=== PATIENT | female | born 1975 | race Caucasian/White ===

== ENCOUNTER 2018-07-12 07:24 | Emergency (ER) | payer OTHER ==
--- NOTE | 2018-07-12 07:46 | EDPHY ---
H & P Stated Complaint: LLQ abd pain started friday, dairrhea yesterday Time Seen by Provider: 07/12/18 07:45 HPI/ROS: 42 yo F presents c/o lower abdominal pain since Friday, 2 days ago, more prominent on the left lower abdomen. Some diarrhea, non bloody and chills today. She hasnt been sleeping well secondary to discomfort. No vaginal discharge, periods regular and no prior abdominal surgery. Review of systems General no fever positive chills no weakness HEENT no eye pain no eye discharge. No eye redness, no sore throat Respiratory no cough, no shortness of breath Cardiac no chest pain, no peripheral edema GI positive abdominal pain, positive diarrhea, no constipation, no nausea, no vomiting no flank pain, no hematuria, no dysuria Musculoskeletal no myalgias, no joint pain Heme no easy bruising, no easy bleeding Endo no polyuria, no polydipsia Skin no rashes, no pruritus Neuro no syncope, no dizziness, no headaches Psych is no suicidal ideation, no homicidal ideation Source: Patient Exam Limitations: No limitations - Personal History LMP (Females 10-55): 8-14 Days Ago - Medical/Surgical History Hx Asthma: No Hx Chronic Respiratory Disease: No Hx Diabetes: No Hx Cardiac Disease: No Hx Renal Disease: No Hx Cirrhosis: No Hx Alcoholism: No Hx HIV/AIDS: No Hx Splenectomy or Spleen Trauma: No Other PMH: denies - Family History Significant Family History: No pertinent family hx - Social History Smoking Status: Never smoked Alcohol Use: Rarely Drug Use: None - Physical Exam Exam: 42 yo F alert and oriented in moderate distress secondary to lower abd discomfort HEENT atraumatic normocephalic, extraocular muscles intact, anicteric Oropharynx negative for erythema negative exudate, tolerating her own secretions Neck supple no meningismus Lungs clear to auscultation bilaterally Heart regular rate and rhythm without murmur rub or gallop Abdomen nondistended normoactive bowel sounds ttp llq, no guarding , no rebound Back no CVA tenderness, no step-offs, no spinal tenderness Extremities no cyanosis clubbing or edema Neuro alert and oriented, no focal deficits Constitutional: Initial Vital Signs Temperature (C) 36.7 C 07/12/18 07:29 Heart Rate 79 07/12/18 07:29 Respiratory Rate 18 07/12/18 07:29 Blood Pressure 131/77 H 07/12/18 07:29 O2 Sat (%) 97 07/12/18 07:29 O2 Delivery Mode Room Air Allergies/Adverse Reactions: No Known Allergies Allergy (Unverified 07/12/18 07:29) Home Medications: Medication Instructions Recorded Dicyclomine [Bentyl 20 MG (*)] 20 mg PO TID PRN #21 tab 07/12/18 Hydrocodone/Acetaminophen [Vicodin 1 - 2 each PO DAILY PRN 3 Days #6 07/12/18 5-300 mg Tablet] tablet Medical Decision Making - Diagnostics Imaging Results: Imaging Impressions Abdomen CT 07/12/18 08:02 Impression: 1. Normal bowel pattern. No diverticulitis/colitis or bowel obstruction. 2. Trace free fluid in the cul-de-sac. No abscess. 3. Benign gastric diverticula in an atypical location along the anterior wall of the stomach. No regional inflammation or perforation. Findings discussed with emergency department physician, Moni Robert MD on July 12, 2018 at 8:44 a.m. ED Course/Re-evaluation: Patient seen and evaluated for left lower quadrant abdominal pain, lower abdominal pain of 3 days duration. IV established, labs drawn pt given one liter normal slaine for dehydration CBC with mildly elevated white blood cell count 10 Urine negative cmp wnl Urinalysis negative for blood negative for infection, negative for ct abd done to rule out diverticulitis or appendicitis ct abd neg - no diverticultis, no adnexal masses, no hydroneprhosis Imp diarrhea, lower abdominal pain with negative ct scan, labs wnl plan home, rest, bentyl prn crampy pain f/u pcp return if worsening pain, fever. Differential Diagnosis: Differential diagnosis considered but not limited to: Diverticulitis, enteritis, colitis, appendicitis, gastroenteritis, infectious diarrhea, irritable bowel syndrome, tubo-ovarian abscess, kidney stone - Data Points Laboratory Results: 07/12/18 07/12/18 07/12/18 08:01 08:00 07:47 POC Sodium 137 mEq/L mEq/L (135-145) POC Potassium 3.8 mEq/L mEq/L (3.3-5.0) POC Chloride 103.0 mEq/L mEq/L (97-110) POC Total CO2 25 mEq/L mEq/L (22-31) POC BUN 8 mg/dL mg/dL (7-23) POC Creatinine 1.0 mg/dL mg/dL (0.6-1.0) POC Glucose 114 mg/dL H mg/dL (70-100) POC Lactic Acid Faisal 1.1 mmol/L mmol/L (0.7-2.1) POC Calcium 9.9 mg/dL mg/dL (8.5-10.4) POC Total Bilirubin 0.8 mg/dL mg/dL (0.1-1.4) POC GGT 13 IU/L IU/L (5-65) POC AST 28 IU/L IU/L (14-46) POC ALT 19 IU/L IU/L (9-52) POC Alk Phosphatase 60 IU/L IU/L (38-126) POC Total Protein 7.3 g/dL g/dL (6.3-8.2) POC Albumin 4.2 g/dL g/dL (3.5-5.0) POC Amylase 38 IU/L IU/L (30-110) Medications Given: Discontinued Medications Sodium Chloride (Ns) 1,000 mls @ 0 mls/hr IV ONCE ONE PRN Reason: Wide Open Stop: 07/12/18 07:51 Last Admin: 07/12/18 08:04 Dose: 1,000 mls Point of Care Test Results: CBC CBC Collection Date 07/12/18 CBC Collection Time 07:45 WBC 10.73 RBC 4.69 HGB 14.7 HCT 43.6 PLT 297 Neut # 8.08 Neut 75.2 LYMPH # 2.05 LYMPH 19.1 MCV 93.0 Chemistry 07/12/18 07/12/18 08:00 07:47 POC Sodium 137 mEq/L mEq/L (135-145) POC Potassium 3.8 mEq/L mEq/L (3.3-5.0) POC Chloride 103.0 mEq/L mEq/L (97-110) POC Total CO2 25 mEq/L mEq/L (22-31) POC BUN 8 mg/dL mg/dL (7-23) POC Creatinine 1.0 mg/dL mg/dL (0.6-1.0) POC Glucose 114 mg/dL H mg/dL (70-100) POC Calcium 9.9 mg/dL mg/dL (8.5-10.4) POC Total Bilirubin 0.8 mg/dL mg/dL (0.1-1.4) POC GGT 13 IU/L IU/L (5-65) POC AST 28 IU/L IU/L (14-46) POC ALT 19 IU/L IU/L (9-52) POC Alk Phosphatase 60 IU/L IU/L (38-126) POC Total Protein 7.3 g/dL g/dL (6.3-8.2) POC Albumin 4.2 g/dL g/dL (3.5-5.0) POC Amylase 38 IU/L IU/L (30-110) Blood Gas/Lactic Acid-Venous 07/12/18 08:01 POC Lactic Acid Faisal 1.1 mmol/L mmol/L (0.7-2.1) Liver Function Tests LFT Collection Date 07/12/18 LFT Collection Time 07:45 Urine Collection Date 07/12/18 Collection Time 07:35 HCG Results Negative Urine Dip Collection Date 07/12/18 Collection Time 07:40 Specific [place] (1.002-1.030) 1.015 PH (5.0-7.5) 7.0 Leukocytes (Negative) Negative Nitrites (Negative) Negative Protein (Negative) Negative Glucose (Negative) Negative Ketones (Negative) Trace Urobilnogen (0.2-1.0 EU) 0.2 Bilirubin (Negative) Negative Blood (Negative) Negative Departure - Departure Disposition: Home, Routine, Self-Care Clinical Impression: Lower abdominal pain, unspecified, Diarrhea Condition: Good Instructions: Acute Diarrhea (ED), Abdominal Pain (ED) Referrals: [facility] [Other] - As per Instructions Prescriptions: Dicyclomine [Bentyl 20 MG (*)] 20 mg PO TID PRN #21 tab PRN Reason: Gi Distress Hydrocodone/Acetaminophen [Vicodin 5-300 mg Tablet] 1 - 2 each PO DAILY PRN 3 Days #6 tablet PRN Reason: Pain, Moderate
[2018-07-12] MEDS ORDERED: NS 1,000 ML IV ONE (07:50)
[2018-07-12] MEDS ORDERED: IOPAMIDOL (ISOVUE-300) 100 ML BTL ONE (08:09)
[2018-07-12 10:51] VITALS: BP 129/87
== END 2018-07-12 09:24 | disposition home or self-care (01) ==
LOC: CED 07:24
DX: R19.7 Diarrhea, unspecified (principal); R10.32 Left lower quadrant pain
CPT/HCPCS: 74177-PO; 80048-ER; 80076-ER; 81025-ER; 82150-ER; 83605-ER; 85025-QW-ER; 85379-QW-ER; 96360-ER; 99285-ER; Q9967